=== PATIENT | male | born 1980 | race Caucasian/White ===

== ENCOUNTER 2017-06-26 03:23 | Emergency (ER) | payer OTHER ==
[~2017-06-26] VITALS: Ht 190.5 cm; Wt 134.0 kg
[2017-06-26 03:26] VITALS: BP 164/87; PULSE 105; RESP 14; O2SAT 99
[2017-06-26] MEDS ORDERED: methylPREDNISolone SOD SUCC 125 MG/2 ML VIAL IV PUSH ONE (03:45)
[2017-06-26] MEDS ORDERED: SODIUM CHLORIDE 0.9% FLUSH 10 ML FLUSH IV FLUSH PRN (03:45)
[2017-06-26] MEDS ORDERED: FAMOTIDINE 20 MG/2 ML VIAL IV PUSH ONE (03:45)
--- NOTE | 2017-06-26 03:58 | PD ---
HPI Chief Complaint: Allergic/Adverse Reaction Time Seen by Provider: 03:44 Travel History International Travel<30 days: No Contact w/Intl Traveler<30days: No Traveled to known affect area: No History of Present Illness HPI 37 y/o male presents with rash and swelling to his face that started this evening shortly after he ate shrimp at 11 PM. He states he knows he has an allergy to shrimp but wanted to try some as he has had some in the past and a small amount and done okay. He states that he took 3 Benadryl prior to coming in but got scared when his face started to swell. He states the swelling to his face is actually started to improve. He denies any other concurrent complaints. Quality is swollen. Location is face. Severity is improving. PFSH Past Medical History High Cholesterol: Yes Diabetes: Yes Patient Takes Glucophage: Yes Tetanus Vaccination: < 5 Years Influenza Vaccination: No Past Surgical History Surgical History: No Previous Surgery Social History Alcohol Use: Yes (weekends) Tobacco Use: No Substance Use: No Allergies-Medications (Allergen,Severity, Reaction): Coded Allergies: shrimp (Verified Allergy, Unknown, 06/26/17) Reported Meds & Prescriptions Reported Meds & Active Scripts Active Pepcid (Famotidine) 20 Mg Tab 20 Mg PO BID 5 Days Prednisone 50 Mg Tab 50 Mg PO DAILY 5 Days Review of Systems Except as stated in HPI: all other systems reviewed are Neg Physical Exam Narrative GENERAL: 37 y/o male with mild rash noted SKIN: patient with mild erythema noted to upper legs and arms HEAD: Atraumatic. Normocephalic. EYES: Pupils equal and round. No scleral icterus. No injection or drainage. ENT: No nasal bleeding or discharge. Mucous membranes pink and moist. no uvula edema, mild tongue swelling NECK: Trachea midline. No JVD. CARDIOVASCULAR: Regular rate and rhythm. No murmur appreciated. RESPIRATORY: No accessory muscle use. Clear to auscultation. Breath sounds equal bilaterally. GASTROINTESTINAL: Abdomen soft, non-tender, nondistended. Hepatic and splenic margins not palpable. MUSCULOSKELETAL: No obvious deformities. No clubbing. No cyanosis. No edema. NEUROLOGICAL: Awake and alert. No obvious cranial nerve deficits. Motor grossly within normal limits. Normal speech. PSYCHIATRIC: Appropriate mood and affect; insight and judgment normal. Data Data Last Documented VS Vital Signs Date Time Temp Pulse Resp B/P (MAP) Pulse Ox O2 Delivery O2 Flow Rate FiO2 06/26/17 03:26 105 14 164/87 (112) 99 Orders Orders Ecg Monitoring (06/26/17 03:44) Iv Access Insert/Monitor (06/26/17 03:44) Oximetry (06/26/17 03:44) Methylprednisolone So Succ Inj (Solumedr (06/26/17 03:45) Famotidine Inj (Pepcid Inj) (06/26/17 03:45) Sodium Chloride 0.9% Flush (Ns Flush) (06/26/17 03:45) Ed Discharge Order (06/26/17 05:00) MDM Medical Decision Making Medical Screen Exam Complete: Yes Emergency Medical Condition: Yes Medical Record Reviewed: Yes (pmh ) Differential Diagnosis allergic reaction, uri, med effect Narrative Course will dose with solumedrol, pepcid and reevaluate on first recheck improving on second recheck states swelling to face gone and wanting to go, Patient denies any new complaints and states that they are feeling better. Patient happy with care, all questions answered. Patient knows that follow up is incumbent on them and to return to the emergency room immediately if new or worsening symptoms develop. Patient given strict return precautions, vitals reviewed and are normal, agrees to further workup as an outpatient. Diagnosis Primary Impression: Allergic reaction Qualified Codes: T78.40XA - Allergy, unspecified, initial encounter Patient Instructions: General Instructions Additional Instructions: return as needed, follow with primary for recheck wednesday, benadryl ovver the counter as needed for itching and rash, avoid shrimp Med/Other Pt SpecificInfo: Prescription(s) given Scripts Famotidine (Pepcid) 20 Mg Tab 20 MG PO BID for 5 Days, #10 TAB 0 Refills Prov: Renetta Zhou MD 06/26/17 Prednisone (Prednisone) 50 Mg Tab 50 MG PO DAILY for 5 Days, #5 TAB 0 Refills Prov: Renetta Zhou MD 06/26/17 Disposition: 01 DISCHARGE HOME Condition: Stable Renetta Zhou MD Jun 26, 2017 03:58
[2017-06-26] MEDS ORDERED: FAMO1TAB37 PO (05:01)
[2017-06-26] MEDS ORDERED: PRED50 PO (05:01)
== END 2017-06-26 05:26 | disposition home or self-care (01) ==
LOC: NEPC 03:23
DX: T78.40XA Allergy, unspecified, initial encounter (principal); E78.00 Pure hypercholesterolemia, unspecified; E11.9 Type 2 diabetes mellitus without complications
CPT/HCPCS: 96374; 96375; 99284; J2930